=== PATIENT | male | born 1995 | race African-American/Black ===

== ENCOUNTER 2023-10-26 13:07 | Emergency (ER) | payer OTHER ==
[~2023-10-26] VITALS: Ht 182.9 cm; Wt 80.0 kg
[2023-10-26 13:44] VITALS: TEMP 98.3; O2SAT 99
[2023-10-26 16:15] VITALS: BP 127/76; PULSE 95; RESP 18
[2023-10-26] MEDS: HYDROCODONE/ACETAMINOPHEN 5/325MG TABLET PO ONE (16:15)
[2023-10-26] MEDS ORDERED: HYDR-4001 MT (17:14)
[2023-10-26] MEDS ORDERED: IBUP-2028 MT (17:14)
[2023-10-26] MEDS: PENICILLIN G BENZATHINE 2,400,000 UNITS/4ML SYR IM ONE (17:40)
== END 2023-10-26 17:49 | disposition home or self-care (01) ==
LOC: ER 13:07
DX: S02.652A Fracture of angle of left mandible, initial encounter for closed fracture (principal); X58.XXXA Exposure to other specified factors, initial encounter; Y93.89 Activity, other specified; Y92.89 Other specified places as the place of occurrence of the external cause; Y99.8 Other external cause status
CPT/HCPCS: 70450; 70486; 96372; 99285; J0561; Z7610